=== PATIENT | female | born 1995 | race Caucasian/White ===

== ENCOUNTER 2019-02-09 05:32 | Emergency (ER) | payer MEDICAID ==
[2019-02-09] MEDS ORDERED: NS 1,000 ML IV ONE (05:56)
[2019-02-09] MEDS ORDERED: ONDANSETRON 4 MG/2 ML VIAL IVP ONE (05:56)
--- NOTE | 2019-02-09 06:01 | EDPHY ---
H & P Stated Complaint: abd pain - Personal History LMP (Females 10-55): 8-14 Days Ago Current Tetanus Diphtheria and Acellular Pertussis (TDAP): Yes - Medical/Surgical History Hx Asthma: No Hx Chronic Respiratory Disease: No Hx Diabetes: No Hx Cardiac Disease: No Hx Renal Disease: No Hx Cirrhosis: No Hx Alcoholism: No Hx HIV/AIDS: No Hx Splenectomy or Spleen Trauma: No - Social History Smoking Status: Never smoked Time Seen by Provider: 02/09/19 05:46 HPI/ROS: Chief Complaint: Abdominal pain HPI: 24-year-old G0 woman presenting with 2 days of worsening lower abdominal pain. Patient has had some nausea, no vomiting. Pain is been gradually developing in the lower abdomen. Last menstrual cycle was 2 weeks ago was normal. Patient denies . No vaginal discharge. No history of sexually transmitted infections. No fevers or chills. No diarrhea. Did have some firm stools. Last ate a couple bites of soup at dinnertime last night. Has not been hungry. Did have some water this morning. No abdominal surgeries in the past. Pain is about an 8/10. ROS: 10 systems were reviewed and were negative except those elements noted in the HPI. PMH: Denies Social History: No smoking Family History: non-contributory Physical Exam: Gen: Awake, Alert, No Distress HEENT: Nose: no rhinorrhea Eyes: PERRLA, EOMI Mouth: Moist mucosa Neck: Supple, no JVD Chest: nontender, lungs clear to auscultation Heart: S1, S2 normal, no murmur Abd: Soft, patient has tenderness right lower quadrant and lower abdomen with a firm mass in the right lower quadrant and guarding. Back: no CVA tenderness, no midline tenderness Ext: no edema, non-tender Skin: no rash Neuro: CN II-XII intact, Sensation grossly intact, Strength 5/5 in bilateral upper and lower extremities (Yovanny Chino) Constitutional: Initial Vital Signs Temperature (C) 36.9 C 02/09/19 05:35 Heart Rate 75 02/09/19 05:35 Respiratory Rate 18 02/09/19 05:35 Blood Pressure 137/86 H 02/09/19 05:35 O2 Sat (%) 100 02/09/19 05:35 O2 Delivery Mode Room Air Allergies/Adverse Reactions: No Known Allergies Allergy (Unverified 02/09/19 05:35) Home Medications: Medication Instructions Recorded NK [No Known Home Meds] 02/09/19 Medical Decision Making - Diagnostics Imaging Results: Imaging Impressions Abdomen Ultrasound 02/09/19 05:54 Impression: 1. Appendix not identified. 2. A few right lower quadrant benign lymph nodes. Findings and recommendations discussed with Emergency Department physician, Dr. Leeroy Rodriguez at 0800 hours, 02/09/2019. Final report concurs with initial preliminary interpretation. Pelvic/Renal Ultrasound 02/09/19 05:54 Impression: 1. No ovarian torsion, adnexal masses or significant free fluid. 2. Posterior mid body 6 mm leiomyoma. Findings and recommendations discussed with Emergency Department physician, Dr. Leeroy Rodriguez at 0800 hours, 02/09/2019. Final report concurs with initial preliminary interpretation. Abdomen CT 02/09/19 08:23 Impression: 1. Mild pancreatic enlargement with peripancreatic stranding, which could be related to pancreatitis, however the patient does not have typical symptoms. In the absence of laboratory evidence of pancreatitis, consider short-term follow- up MR. 2. Minimal intrahepatic biliary dilatation. 3. Additional findings as above. Findings discussed with Leeroy Rodriguez on 02/09/2019 at 9:27 a.m. ED Course/Re-evaluation: 24-year-old with lower abdominal pain worsening over the last 2 days. Some nausea no vomiting. She does have anorexia. Reproducible tenderness. Will obtain ultrasound and laboratory evaluations and reassess. IV analgesia, antiemetics and fluids. 0700 patient signed out to Dr. Rodriguez pending laboratory and imaging results. ( Yovanny Chino) Other Provider: Care assumed at 6:38 a.m., plan for ultrasound pelvis and appendix. 800: Ultrasound shows normal ovaries and otherwise normal pelvic, appendix not visualized, multiple lymph nodes in the right lower quadrant per Dr. Osborn. 822: Results discussed and observation versus further imaging discussed with the patient, CT abdomen pelvis discussed and consented to evaluate for appendicitis. She is speeder frame tender at McBurney's point and is requesting additional pain medication. 926: CT per Dr. Diaz shows some slight stranding around the pancreas otherwise normal. Appendix is normal. Lipase added clinically unlikely to have pancreatitis. Nontender over epigastrium. No upper abdominal tenderness. Warned she needs follow-up imaging, case management to see regarding coordination of care. (Leeroy Rodriguez) - Data Points Laboratory Results: Laboratory Results 02/09/19 06:00 02/09/19 06:00 02/09/19 02/09/19 02/09/19 06:50 06:00 06:00 WBC RBC Hgb Hct MCV MCH MCHC RDW Plt Count MPV Neut % (Auto) Lymph % (Auto) Rogers % (Auto) Eos % (Auto) Baso % (Auto) Nucleat RBC Rel Count Absolute Neuts (auto) Absolute Lymphs (auto) Absolute Monos (auto) Absolute Eos (auto) Absolute Basos (auto) Absolute Nucleated RBC Immature Gran % Seg Neutrophils % Band Neutrophils % Lymphocytes % Monocytes % Eosinophils % Basophils % Metamyelocytes % Myelocytes % Promyelocytes % Blast Cells % Immature Gran # Absolute Seg Neuts Absolute Band Neuts Absolute Lymphocytes Absolute Monocytes Absolute Eosinophils Absolute Basophils Absolute Metamyelocyte Absolute Myelocytes Absolute Promyelocytes Absolute Plasma Cells Nucleated RBCs RBC/WBC/PLT Morphology Absolute Blast Cells Plasma Cells % Platelet Estimate Sodium Potassium Chloride Carbon Dioxide Anion Gap BUN Creatinine Estimated GFR Glucose Calcium Lipase 46 IU/L IU/L (23-300) Beta HCG, Qual NEGATIVE Urine Color YELLOW Urine Appearance CLEAR Urine pH 5.0 (5.0-7.5) Ur Specific [place] 1.023 (1.002-1.030) Urine Protein NEGATIVE (NEGATIVE) Urine Ketones 2+ H (NEGATIVE) Urine Blood NEGATIVE (NEGATIVE) Urine Nitrate NEGATIVE (NEGATIVE) Urine Bilirubin NEGATIVE (NEGATIVE) Urine Urobilinogen NEGATIVE EU EU (0.2-1.0) Ur Leukocyte Esterase NEGATIVE (NEGATIVE) Urine Glucose NEGATIVE (NEGATIVE) 02/09/19 02/09/19 06:00 06:00 WBC 7.23 10^3/uL 10^3/uL (3.80-9.50) RBC 4.89 10^6/uL 10^6/uL (4.18-5.33) Hgb 14.9 g/dL g/dL (12.6-16.3) Hct 43.2 % % (38.0-47.0) MCV 88.3 fL fL (81.5-99.8) MCH 30.5 pg pg (27.9-34.1) MCHC 34.5 g/dL g/dL (32.4-36.7) RDW 12.8 % % (11.5-15.2) Plt Count 192 10^3/uL 10^3/uL (150-400) MPV 10.6 fL fL (8.7-11.7) Neut % (Auto) Not Reported Lymph % (Auto) Not Reported Rogers % (Auto) Not Reported Eos % (Auto) Not Reported Baso % (Auto) Not Reported Nucleat RBC Rel Count Not Reported Absolute Neuts (auto) Not Reported Absolute Lymphs (auto) Not Reported Absolute Monos (auto) Not Reported Absolute Eos (auto) Not Reported Absolute Basos (auto) Not Reported Absolute Nucleated RBC Not Reported Immature Gran % Not Reported Seg Neutrophils % 80.8 % % Band Neutrophils % 2.0 % % Lymphocytes % 10.1 % % Monocytes % 6.1 % % Eosinophils % 1.0 % % Basophils % 0.0 % % Metamyelocytes % 0.0 % % Myelocytes % 0.0 % % Promyelocytes % 0.0 % % Blast Cells % 0.0 % % Immature Gran # Not Reported Absolute Seg Neuts 5.84 10^3/uL 10^3/uL (1.70-6.50) Absolute Band Neuts 0.14 10^3/uL 10^3/uL (0.00-0.70) Absolute Lymphocytes 0.73 10^3/uL L 10^3/uL (1.00-3.00) Absolute Monocytes 0.44 10^3/uL 10^3/uL (0.30-0.80) Absolute Eosinophils 0.07 10^3/uL 10^3/uL (0.03-0.40) Absolute Basophils 0.00 10^3/uL L 10^3/uL (0.02-0.10) Absolute Metamyelocyte 0.00 10^3/mL 10^3/mL (0.00-0.00) Absolute Myelocytes 0.00 10^3/mL 10^3/mL (0.00-0.00) Absolute Promyelocytes 0.00 10^3/uL 10^3/uL (0.00-0.00) Absolute Plasma Cells 0.00 10^3/uL 10^3/uL (0.00-0.00) Nucleated RBCs 0 /100 WBC /100 WBC (0-0) RBC/WBC/PLT Morphology NORMAL (NORMAL) Absolute Blast Cells 0.00 10^3/uL 10^3/uL (0.00-0.00) Plasma Cells % 0.0 % % Platelet Estimate ADEQUATE (ADEQ) Sodium 136 mEq/L mEq/L (135-145) Potassium 3.7 mEq/L mEq/L (3.5-5.2) Chloride 105 mEq/L mEq/L (97-110) Carbon Dioxide 20 mEq/l L mEq/l (22-31) Anion Gap 11 mEq/L mEq/L (6-14) BUN 9 mg/dL mg/dL (7-23) Creatinine 0.6 mg/dL mg/dL (0.6-1.0) Estimated GFR > 60 Glucose 111 mg/dL H mg/dL (70-100) Calcium 9.6 mg/dL mg/dL (8.5-10.4) Lipase Beta HCG, Qual Urine Color Urine Appearance Urine pH Ur Specific [place] Urine Protein Urine Ketones Urine Blood Urine Nitrate Urine Bilirubin Urine Urobilinogen Ur Leukocyte Esterase Urine Glucose Medications Given: Discontinued Medications Hydromorphone HCl (Dilaudid) 0.5 mg IVP EDNOW ONE Stop: 02/09/19 08:23 Last Admin: 02/09/19 08:25 Dose: 0.5 mg Sodium Chloride (Ns) 1,000 mls @ 0 mls/hr IV ONCE ONE; Wide Open PRN Reason: Protocol Stop: 02/09/19 05:57 Last Admin: 02/09/19 05:59 Dose: 1,000 mls Morphine Sulfate (Morphine) 4 mg IVP ONCE ONE Stop: 02/09/19 05:57 Last Admin: 02/09/19 06:02 Dose: 4 mg Ondansetron HCl (Zofran) 4 mg IVP EDNOW ONE Stop: 02/09/19 05:57 Last Admin: 02/09/19 06:00 Dose: 4 mg Departure - Departure Disposition: Home, Routine, Self-Care Clinical Impression: Abdominal pain Qualifiers: Abdominal location: unspecified location Qualified Code(s): R10.9 - Unspecified abdominal pain Condition: Good Instructions: Acute Abdominal Pain (ED) Additional Instructions: You had a little bit of inflammation noted around your pancreas on CT scanning, that needs follow-up in 1-2 months. Referrals: [facility],. [Clinic] - As per Instructions
[2019-02-09 06:14] LABS: PLATELET COUNT 192 10^3/uL (150-400)
[2019-02-09 08:03] VITALS: BP 108/64
[2019-02-09] MEDS ORDERED: HYDROmorphONE/DILAUDID 2 MG/ML INJ IVP ONE (08:22)
[2019-02-09] MEDS ORDERED: HYDROmorphONE/DILAUDID 1 MG/ML INJ ONE (08:23)
[2019-02-09] MEDS ORDERED: IOPAMIDOL (ISOVUE-300) 100 ML BTL ONE (08:46)
--- NOTE | 2019-02-09 10:25 | ASMTCMCOM ---
CM Note CM Note Notes: Case Management asked to see patient regarding ED follow up and to establish primary care. Patient is current with [place] [employer] and has not seen a provider since moving to [place] from [place] overa year ago. Patient states that an appointment next Thursday AM would be ideal and she prefers a female provider. Appointment scheduled with RENE Davidson at [facility] on February 15 at 10:30 (check in). Address and contact information provided to patient and ER report faxed to with confirmation. Date Signed: 02/09/2019 10:23 AM Electronically Signed By:Ruby Caldwell RN
== END 2019-02-09 10:02 | disposition home or self-care (01) ==
DX: R10.31 Right lower quadrant pain (principal); K86.9 Disease of pancreas, unspecified; R59.0 Localized enlarged lymph nodes; D25.9 Leiomyoma of uterus, unspecified; K83.8 Other specified diseases of biliary tract; E86.9 Volume depletion, unspecified
CPT/HCPCS: 96374; J1170; J2270; J2405; Q9967

== ENCOUNTER 2019-02-10 02:44 | Observation (INO) | payer MEDICAID ==
[2019-02-10] MEDS ORDERED: NS 1,000 ML IV ONE (03:29)
[2019-02-10] MEDS: ONDANSETRON 4 MG/2 ML VIAL IVP ONE ×2 (03:33→03:52)
[2019-02-10 03:37] LABS: PLATELET COUNT 169 10^3/uL (150-400)
[2019-02-10] MEDS ORDERED: FAMOTIDINE 20 MG/NACL 50 ML IV ONE (03:49)
[2019-02-10] MEDS ORDERED: HYDROmorphONE/DILAUDID 2 MG/ML INJ IVP ONE (03:49)
[2019-02-10] MEDS ORDERED: HYDROmorphONE/DILAUDID 1 MG/ML INJ ONE (03:50)
[2019-02-10] MEDS ORDERED: FAMOTIDINE 20 MG/2 ML SDV ONE (03:50)
--- NOTE | 2019-02-10 03:56 | EDPHY ---
H & P Stated Complaint: abdo pain, here yesterday for same Time Seen by Provider: 02/10/19 03:34 HPI/ROS: HPI The patient presents with ongoing abdominal pain for the last 3 days. Initially she experience pain intermittently in her lower abdomen which was dull and severe. She came to the emergency department for this about 24 hr ago and had testing here which revealed right lower quadrant prominent lymph nodes on ultrasound and stranding around her pancreas on CT scan with normal laboratory testing. She felt better after receiving some pain medication here and was discharged home. At home she took 2 doses of ibuprofen for mild pain. She was able to eat some bland foods today. She had a hill for dinner and then went to bed. However at about 8:30 p.m. She developed slow onset of upper abdominal pain which she feels mostly in her epigastrium which is dull in nature the radiates throughout her abdomen and is associated with nausea. She has not had a bowel movement in the last 24 hr though says that she has not had much to eat either.. REVIEW OF SYSTEMS 10 systems were reviewed and negative with the exception of the elements mentioned in the history of present illness. PMHx: Healthy, no prior abdominal operations Soc Hx: No alcohol use, recently moved from [place] FHx: PHYSICAL General Appearance: Alert, no distress Eyes: Pupils equal and round no pallor or injection ENT, Mouth: Mucous membranes moist Respiratory: There are no retractions, lungs are clear to auscultation Cardiovascular: Regular rate and rhythm Gastrointestinal: Abdomen is soft and tender in the epigastrium, no masses, bowel sounds normal Neurological: A&O, moves all extremities Skin: Warm and dry, no rashes Musculoskeletal: Neck is supple non tender Extremities: symmetrical, full range of motion Psychiatric: Patient is oriented X 3, there is no agitation Source: Patient Exam Limitations: No limitations - Personal History LMP (Females 10-55): 15-21 Days Ago Current Tetanus/Diphtheria Vaccine: Yes Current Tetanus Diphtheria and Acellular Pertussis (TDAP): Yes - Medical/Surgical History Hx Asthma: No Hx Chronic Respiratory Disease: No Hx Diabetes: No Hx Cardiac Disease: No Hx Renal Disease: No Hx Cirrhosis: No Hx Alcoholism: No Hx HIV/AIDS: No Hx Splenectomy or Spleen Trauma: No Other PMH: denies - Social History Smoking Status: Never smoked Constitutional: Initial Vital Signs Temperature (C) 36.4 C 02/10/19 02:47 Heart Rate 57 L 02/10/19 02:47 Respiratory Rate 99 H 02/10/19 02:47 Blood Pressure 138/89 H 02/10/19 02:47 O2 Delivery Mode Room Air Allergies/Adverse Reactions: No Known Allergies Allergy (Verified 02/10/19 08:03) Home Medications: Medication Instructions Recorded Albuterol [Proventil Inhaler HFA 1 - 2 puffs IH DAILY PRN 02/10/19 (*)] Herbals/Supplements -Info Only 1 ea PO DAILY 02/10/19 Ibuprofen [Motrin (*)] 200 mg PO TID PRN 02/10/19 Medical Decision Making - Diagnostics Imaging Results: Right upper quadrant ultrasound demonstrates trace ascites, no biliary pathology , interpreted by direct Radiology. Imaging: I viewed and interpreted images myself Differential Diagnosis: 24-year-old healthy female presents with 3 days of intermittent abdominal pain which has now recurred and is more in the upper than lower abdomen. She had extensive workup yesterday revealing right lower quadrant lymphadenopathy as well as stranding around the pancreas. There was no sign of gallstones, patient does not drink alcohol, and lipase was normal. Plan for IV fluids, symptomatic relief, repeat labs. Interestingly, patient's lipase returned elevated at 1100. Yesterday her lipase was normal but there was stranding noted around her pancreas. Cause of her pancreatitis is not clear. Patient's symptoms continued to be quite severe despite IV pain medication. I have discussed the case with Dr. Ayala and we will admit her for pain control and further testing to see if the cause of her pancreatitis can be elucidated. - Data Points Laboratory Results: Laboratory Results 02/10/19 03:30 02/10/19 03:30 Medications Given: Sodium Chloride (Ns) 1,000 mls @ 125 mls/hr IV CONT HARRIETT Stop: 08/09/19 05:29 Last Admin: 02/10/19 20:50 Dose: 1,000 mls Morphine Sulfate (Morphine) 2 mg IVP Q2H PRN PRN Reason: Pain, Severe Unable to Take PO Stop: 02/20/19 05:20 Last Admin: 02/10/19 11:20 Dose: 2 mg Ondansetron HCl (Zofran Odt) 4 mg PO Q4HRS PRN PRN Reason: Nausea/Vomiting, Use 1st Stop: 08/09/19 05:20 Last Admin: 02/10/19 21:50 Dose: 4 mg Discontinued Medications Hydrocodone Bitart/Acetaminophen ([place] 5/325) 1 tab PO EDNOW ONE Stop: 02/10/19 05:10 Last Admin: 02/10/19 06:03 Dose: 1 tab Hydromorphone HCl (Dilaudid) 0.5 mg IVP EDNOW ONE Stop: 02/10/19 03:50 Last Admin: 02/10/19 03:53 Dose: 0.5 mg Sodium Chloride (Ns) 1,000 mls @ 0 mls/hr IV EDNOW ONE; Wide Open PRN Reason: Protocol Stop: 02/10/19 03:30 Last Admin: 02/10/19 03:33 Dose: 1,000 mls Famotidine/Sodium Chloride (Pepcid 20 Mg (Premix)) 50 mls @ 200 mls/hr IV EDNOW ONE Stop: 02/10/19 04:03 Last Admin: 02/10/19 03:53 Dose: 50 mls Ondansetron HCl (Zofran) 4 mg IVP EDNOW ONE Stop: 02/10/19 03:30 Last Admin: 02/10/19 03:52 Dose: 4 mg Departure - Departure Disposition: [facility] Clinical Impression: Acute pancreatitis Qualifiers: Pancreatitis type: unspecified pancreatitis type Acute pancreatitis complication: infected necrosis Qualified Code(s): K85.92 - Acute pancreatitis with infected necrosis, unspecified Condition: Fair
[2019-02-10] MEDS ORDERED: HYDROCODONE/APAP 5/325 TAB PO ONE (05:09)
[2019-02-10] MEDS ORDERED: ACETAMINOPHEN 325 MG TAB PO PRN (05:21)
[2019-02-10] MEDS ORDERED: ONDANSETRON 4 MG/2 ML VIAL IVP PRN (05:21)
[2019-02-10] MEDS ORDERED: PROMETHAZINE HCL 25 MG/ML INJ IVP PRN (05:21)
--- NOTE | 2019-02-10 06:22 | PDGENHP ---
History and Physical - Chief Complaint Abdominal pain - History of Present Illness 24 yo F w/ no PMHx presents with abdominal pain. She developed abdominal pain about 2 days ago. This has progressed in severity and moved into her epigastrium. She denies vomiting but has been nauseous and unable to tolerate solid fluid. She can tolerate some fluids at this point. She was seen in the ED yesterday; a CT demonstrated pancreatic stranding but she was discharged since she had a normal lipase. She returns today with persistent symptoms. Her lipase is now >1000. She denies ETOH use or hx of gallstones. She has no prior hx of pancreatitis. She denies any family hx of GI diseases. She is being admitted for observation and further work-up. Case discussed with ED physician Dr. Cano; records reviewed and summarized above. History Information - Allergies/Home Medication List Allergies/Adverse Reactions: No Known Allergies Allergy (Unverified 02/10/19 02:47) Home Medications: NK [No Known Home Meds] 02/09/19 [Last Taken Unknown] I have personally reviewed and updated: family history, medical history - Past Medical History no pertinent PMH - Surgical History Reports: no pertinent surgical hx - Family History Additional family history: Denies family hx of pancreatitis - Social History Smoking Status: Never smoked Review of Systems Review of Systems: ROS: 10pt was reviewed & negative except for what was stated in HPI & below Physical Exam Physical Exam: Temp Pulse Resp BP Pulse Ox 36.7 C 44 L 18 121/82 H 100 02/10/19 06:08 02/10/19 06:08 02/10/19 06:08 02/10/19 06:08 02/10/19 06:08 Constitutional: appears nourished, uncomfortable Eyes: PERRL, EOMI Ears, Nose, Mouth, Throat: moist mucous membranes, no oral mucosal ulcers Cardiovascular: regular rate and rhythym, no murmur, rub, or gallop Respiratory: no respiratory distress, clear to auscultation Gastrointestinal: normoactive bowel sounds, tenderness (Epi-gastric), No guarding, No rebound, No distension Skin: warm, normal color Musculoskeletal: full muscle strength, no muscle tenderness Neurologic: AAOx3, CN II-XII Intact Psychiatric: interacting appropriately, not anxious Lab Data & Imaging Review 02/10/19 03:30 02/10/19 03:30 WBC 5.12 10^3/uL (3.80-9.50) 02/10/19 03:30 RBC 4.49 10^6/uL (4.18-5.33) 02/10/19 03:30 Hgb 13.8 g/dL (12.6-16.3) 02/10/19 03:30 Hct 41.5 % (38.0-47.0) 02/10/19 03:30 MCV 92.4 fL (81.5-99.8) 02/10/19 03:30 MCH 30.7 pg (27.9-34.1) 02/10/19 03:30 MCHC 33.3 g/dL (32.4-36.7) 02/10/19 03:30 RDW 12.8 % (11.5-15.2) 02/10/19 03:30 Plt Count 169 10^3/uL (150-400) 02/10/19 03:30 MPV 10.9 fL (8.7-11.7) 02/10/19 03:30 Neut % (Auto) 63.3 % (39.3-74.2) 02/10/19 03:30 Lymph % (Auto) 27.3 % (15.0-45.0) 02/10/19 03:30 [place] % (Auto) 7.8 % (4.5-13.0) 02/10/19 03:30 Eos % (Auto) 1.0 % (0.6-7.6) 02/10/19 03:30 Baso % (Auto) 0.4 % (0.3-1.7) 02/10/19 03:30 Nucleat RBC Rel Count 0.0 % (0.0-0.2) 02/10/19 03:30 Absolute Neuts (auto) 3.24 10^3/uL (1.70-6.50) 02/10/19 03:30 Absolute Lymphs (auto) 1.40 10^3/uL (1.00-3.00) 02/10/19 03:30 Absolute Monos (auto) 0.40 10^3/uL (0.30-0.80) 02/10/19 03:30 Absolute Eos (auto) 0.05 10^3/uL (0.03-0.40) 02/10/19 03:30 Absolute Basos (auto) 0.02 10^3/uL (0.02-0.10) 02/10/19 03:30 Absolute Nucleated RBC 0.00 10^3/uL (0-0.01) 02/10/19 03:30 Immature Gran % 0.2 % (0.0-1.1) 02/10/19 03:30 Immature Gran # 0.01 10^3/uL (0.00-0.10) 02/10/19 03:30 Sodium 138 mEq/L (135-145) 02/10/19 03:30 Potassium 4.0 mEq/L (3.5-5.2) 02/10/19 03:30 Chloride 106 mEq/L (97-110) 02/10/19 03:30 Carbon Dioxide 22 mEq/l (22-31) 02/10/19 03:30 Anion Gap 10 mEq/L (6-14) 02/10/19 03:30 BUN 10 mg/dL (7-23) 02/10/19 03:30 Creatinine 0.7 mg/dL (0.6-1.0) 02/10/19 03:30 Estimated GFR > 60 02/10/19 03:30 Glucose 97 mg/dL (70-100) 02/10/19 03:30 Calcium 9.1 mg/dL (8.5-10.4) 02/10/19 03:30 Total Bilirubin 0.7 mg/dL (0.1-1.4) 02/10/19 03:30 AST 20 IU/L (14-46) 02/10/19 03:30 ALT 34 IU/L (9-52) 02/10/19 03:30 Alkaline Phosphatase 65 IU/L (38-126) 02/10/19 03:30 Total Protein 6.5 g/dL (6.3-8.2) 02/10/19 03:30 Albumin 4.0 g/dL (3.5-5.0) 02/10/19 03:30 Triglycerides 55 mg/dL (35-135) 02/10/19 03:30 Lipase 1099 IU/L (23-300) H 02/10/19 03:30 Beta HCG, Qual NEGATIVE 02/10/19 03:30 Assessment & Plan Assessment: 24 yo F presents with acute pancreatitis. Plan: 1. Acute pancreatitis - Unclear etiology; patient has no prior history and denies ETOH use. CT scan performed yesterday did not demonstrate any complicating factors. Lipase 1099 on admission. - Admit for observation - Check RUQ U/S; check triglycerides - NPO, mIVF, ADAT - Pain control, anti-emetics PRN Diet - NPO, mIVF, ADAT Code - Full Ppx - Low risk, ambulate TID Dispo - Admit under observation status
[2019-02-10] MEDS: ONDANSETRON DISINTEGRATING 4 MG TAB PO PRN ×2 (06:26→21:50)
[2019-02-10] MEDS: NS 1,000 ML IV SCH ×3 (06:30→20:50)
[2019-02-10] MEDS ORDERED: OXYCODONE/APAP 5/325 TAB PO PRN (06:52)
[2019-02-10] MEDS ORDERED: ALBUTEROL 60 PUFFS/8 GM MDI IH PRN (08:18)
--- NOTE | 2019-02-10 10:25 | HOSPPROG ---
Hospitalist Progress Note Assessment/Plan: Patient is a 24-year-old female who presented to the emergency room with abdominal pain. It developed 2 days ago. It progressed to severe severity moving her epigastric area I reviewed her CT scan which shows pancreatic stranding. On this admission her lipase was elevated at 1099. She denies any alcohol use. 1st encounter chart reviewed * acute pancreatitis, likely idiopathic -abdominal ultrasound is negative for cholelithiasis -CT scan shows some pancreatic stranding -triglycerides are stable -still having pain without the narcotics -she does not drink alcohol, is very active, eats healthy *plan: continue IV hydration, see how she does with clear liquids. > 30 minutes f/u care Subjective: Valerie says pain in her abdomen increases to an 8 without pain meds. Objective: Vital Signs Temp Pulse Resp BP Pulse Ox 36.8 C 41 L 16 142/91 H 100 02/10/19 06:22 02/10/19 06:22 02/10/19 06:22 02/10/19 06:22 02/10/19 06:22 02/09/19 02/10/19 02/11/19 05:59 05:59 05:59 Intake Total 1000 Balance 1000 - Physical Exam Constitutional: uncomfortable, No not in pain (epigastric) Eyes: PERRL Ears, Nose, Mouth, Throat: hearing normal Cardiovascular: regular rate and rhythym Respiratory: no respiratory distress Gastrointestinal: normoactive bowel sounds, tenderness (epigastric area) Skin: warm Neurologic: AAOx3 Psychiatric: interacting appropriately ICD10 Worksheet Patient Problems: Problems Problem Status Onset Acute pancreatitis Acute
--- NOTE | 2019-02-10 14:20 | ASMTCMCOM ---
CM Note CM Note Notes: Reviewed chart and discussed with PIANO INSTRUCTOR, pt came in for abdominal pain. Has pancreatitis, reason is unclear since pt is very healthy and does not drink. Pt will dc home w/ support of LP when medically stable, CM available should her needs change. DC Plan: Independent Date Signed: 02/10/2019 02:18 PM Electronically Signed By:Mercedez Vences RN
[2019-02-11] MEDS: NS 1,000 ML IV SCH (04:57)
[2019-02-11] MEDS: ONDANSETRON DISINTEGRATING 4 MG TAB PO PRN (04:59)
[2019-02-11 08:18] VITALS: BP 131/75
--- NOTE | 2019-02-11 08:29 | HOSPPROG ---
Hospitalist Progress Note Assessment/Plan: Patient is a 24-year-old female who presented to the emergency room with abdominal pain. It developed 2 days ago. It progressed to severe severity moving her epigastric area I reviewed her CT scan which shows pancreatic stranding. On this admission her lipase was elevated at 1099. She denies any alcohol use. * acute pancreatitis, likely idiopathic -abdominal ultrasound is negative for cholelithiasis -CT scan shows some pancreatic stranding -triglycerides are stable -drinking clear liquids without any discomfort -she does not drink alcohol, is very active, eats healthy *plan: Patient feels much improved. Will order her regular diet and tolerating she can dc this morning Subjective: Valerie is feeling better this morning. Objective: Vital Signs Temp Pulse Resp BP Pulse Ox 37.2 C 69 16 131/75 H 98 02/11/19 08:00 02/11/19 08:00 02/11/19 08:00 02/11/19 08:00 02/11/19 08:00 Laboratory Results 02/11/19 05:40 02/10/19 02/11/19 02/12/19 05:59 05:59 05:59 Intake Total 1974 Balance 1974 - Physical Exam Constitutional: no apparent distress, appears nourished, not in pain Eyes: PERRL Ears, Nose, Mouth, Throat: hearing normal Gastrointestinal: soft, non-tender abdomen Skin: warm Neurologic: AAOx3 Psychiatric: interacting appropriately ICD10 Worksheet Patient Problems: Problems Problem Status Onset Acute pancreatitis Acute
--- NOTE | 2019-02-11 09:05 | ASMTCMCOM ---
CM Note CM Note Notes: Pt is being discharged independently to home today. She is having a friend pick her up. No further needs at this time. Date Signed: 02/11/2019 09:04 AM Electronically Signed By:Danika Calero
--- NOTE | 2019-02-11 09:07 | GDS ---
[f rep st] DISCHARGE SUMMARY DISCHARGE DIAGNOSIS: Acute pancreatitis likely idiopathic. HISTORY AND HOSPITAL COURSE: Briefly, this patient is a 24-year-old female who presented to the ER with abdominal pain. It developed 2 days prior to admission and progressed to her epigastric area. On admission, she had an elevated lipase at 1099. Prior to this admission, on the day before, she had an abdominal CT scan which showed mild pancreatic enlargement, peripancreatic stranding which could be related to pancreatitis. She had minimal intrahepatic biliary dilatation. Subsequently, she had an abdominal ultrasound which was negative for cholelithiasis, no findings to suggest acute cholecystitis. It was noted suboptimal assessment of the pancreas due to overlying bowel gas. She was placed on a clear liquid diet, tolerated this well. Her pain has completely resolved. Lipase has stabilized. The recommendation is for her to follow up with her primary care provider for further evaluation. DISCHARGE CONDITION: Stable. Blood pressure is 131/75, heart rate is 69, respiratory rate 16, O2 saturation on room air 98%, temperature 37.2 Celsius. MEDICATIONS AT DISCHARGE: Please see the EMR. DISCHARGE INSTRUCTIONS: To take her diet as tolerated. If she develops further abdominal pain or fever/chills, to return to the ER. /[id number]/MODL MTDD
--- NOTE | 2019-02-11 09:14 | ASMTLACE ---
LACE Length of stay for Answers: 1 day current admission Acuity / Level of Answers: Yes Care: Did the patient have an inpatient admission? # of Emergency department Answers: 1-2 visits in the last 6 months Score: 5 Date Signed: 02/11/2019 09:13 AM Electronically Signed By:Danika Calero
== END 2019-02-11 13:51 | disposition home or self-care (01) ==
LOC: F3E 06:19
PROVIDERS: ADMIT Student in an Organized Health Care Education/Training Program; ATTEND Internal Medicine
DX: K85.90 Acute pancreatitis without necrosis or infection, unspecified (principal)
CPT/HCPCS: 76705; 96361; 96374; 96375; 96376; 99285; G0378; J1170; J2270; J2405